=== PATIENT | male | born 1995 | race Caucasian/White ===

== ENCOUNTER 2021-02-07 05:43 | Emergency (ER) | payer BC ==
[~2021-02-07] VITALS: Ht 160 cm; Wt 109.0 kg
[2021-02-07] MEDS ORDERED: AMOXICILLIN500 MG PO (06:39)
[2021-02-07 07:08] VITALS: BP 108/78
== END 2021-02-07 07:05 | disposition home or self-care (01) | DRG 179 ==
LOC: ED 05:43
DX: U07.1 COVID-19 (principal)